=== PATIENT | male | born 1930 | race Caucasian/White ===

== ENCOUNTER → 2016-07-06 | Outpatient (CLI) | payer MEDICARE, BC ==
[~2016-07-06] MED LIST: FLOMAX DPS0.4 MG PO; MAG-AL LIQUID30 ML PO; SURFAK DPS240 MG PO; THERAPEUTIC MUL1 TAB PO; TYLENOL DPS325 MG PO
--- NOTE | ~2016-07-06 | ECH ---
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 The estimated left ventricular ejection fraction is 60%. Diastolic assessment reveals Grade I diastolic dysfunction. No significant valvular abnormalities. Procedure Type of Study TTE procedure:Echo Complete SF. Procedure Date Date: 07/06/2016 Start: 02:20 Technical Quality: Adequate visualization Indications:Syncope. Appropriate Use Criteria: 9 Height: 66 inches Weight: 123 pounds BSA: 1.63 m Rhythm: NSR HR: 74 bpm BP: 147/81 mmHg M-Mode/2D Measurements LV Diastolic Dimension: 3.65 cm LV Systolic Dimension: 2.38 cm LV Septum Diastolic: 0.92 cm LV PW Diastolic: 0.94 cm AO Root Dimension: 2.87 cm Cardiac Output: 3.41 l/min LA Dimension: 2.96 cm Cardiac Index: 2.09 l/min*m RV Diastolic Dimension: 3.35 cm LA volume index: 32 ml/m LVOT: 1.9 cm LVOT VTI: 16.27 cm RV Base: 3.7 cm LV Stroke volume: 46.11 ml RV Mid: 2.6 cm LV Stroke volume index: 28.29 ml/m TAPSE: 1.9 cm TDI-S': 12 cm/s Doppler Measurements AV Peak Velocity: 2 m/s MV Peak E-Wave: 0.59 m/s AV Peak Gradient: 16 mmHg MV Peak A-Wave: 0.75 m/s AV Mean Gradient: 7.83 mmHg MV E/A Ratio: 0.78 LVOT Peak Velocity: 0.82 m/s MV P1/2t: 78.9 msec AV Area (Continuity):1.42 cm MV Deceleration Time: 277.6 msec MV Area (PHT): 2.79 cm PV Peak Velocity: 1.55 m/s E' Septal Velocity: 0.04 m/s PV Peak Gradient: 9.64 mmHg E' Lateral Velocity: 0.05 m/s A' Septal Velocity: 0.08 m/s A' Lateral Velocity: 0.08 m/s RA Area: 11.41 cm Findings Left Ventricle Normal left ventricle size and function. Diastolic assessment reveals Grade I diastolic dysfunction. Right Ventricle Normal right ventricle structure and function. Left Atrium Normal left atrial size. Right Atrium Normal right atrial size. Mitral Valve Normal mitral valve structure and function. Trivial mitral regurgitation by color Doppler. Aortic Valve The aortic valve is moderately sclerotic. Tricuspid Valve Normal tricuspid valve structure and function. Trivial tricuspid regurgitation by color Doppler. Insufficient jet to calculate pulmonary pressures. Pulmonic Valve Normal pulmonic valve structure and function. Trivial pulmonic valve regurgitation by color Doppler. Pericardial Effusion No evidence of pericardial effusion. Miscellaneous Visualized portions of the aortic root and ascending aorta appear normal in size. Pleural Effusion No evidence of pleural effusion. Signature
== END | disposition home or self-care (01) ==
LOC: PTH.S 13:00 → RAD.S 13:27
DX: R55 Syncope and collapse (principal); I51.89 Other ill-defined heart diseases; I67.2 Cerebral atherosclerosis; R33.9 Retention of urine, unspecified